=== PATIENT | male | born 1985 | race Caucasian/White ===

== ENCOUNTER 2018-08-04 08:58 | Emergency (ER) | payer OTHER ==
[~2018-08-04] VITALS: Ht 177.8 cm; Wt 79.4 kg
[2018-08-04 09:24] LABS: ABSOLUTE NEUTROPHILS 2.4 thou/uL (1.4-8.2); BASOPHILS 0.8 % (0.0-2.0); EOSINOPHILS 1.2 % (0.0-3.0); HEMATOCRIT 46.8 % (42.0-52.0); HEMOGLOBIN 16.1 gm/dL (14.0-18.0); LYMPHOCYTES 26.9 % (24.0-44.0); MCH 31.6 pg (26.0-34.0); MCHC 34.3 g/dL (28.0-37.0); MCV 92.1 fL (80.0-100.0); MONOCYTES 6.3 % (1.0-8.0); PLATELET COUNT 177 thou/uL (150-400); POLYS 64.8 % (36.0-66.0); RBC 5.08 mil/uL (4.50-6.00); RDW 12.7 % (10.5-14.5); WBC 3.7 thou/uL (4.0-11.0)
[2018-08-04 09:27] LABS: POTASSIUM 4.3 mmol/L (3.5-5.1)
[2018-08-04 09:33] LABS: ALBUMIN 4.6 g/dL (3.4-5.0); TOTAL BILIRUBIN 0.8 mg/dL (<0.1-1.0); TOTAL PROTEIN 7.6 g/dL (6.4-8.2); URINE BILIRUBIN NEGATIVE (Negative); URINE BLOOD NEGATIVE (Negative); URINE CLARITY CLEAR; URINE COLOR YELLOW; URINE GLUCOSE-RANDOM* NEGATIVE (Negative); URINE KETONES NEGATIVE (Negative); URINE LEUKOCYTES NEGATIVE (Negative); URINE NITRITE NEGATIVE (Negative); URINE PROTEIN (DIPSTICK) NEGATIVE (Negative); URINE SPECIFIC GRAVITY 1.015 (1.005-1.035); URINE UROBILINOGEN 0.2 E.U./dl (0.2-1.0)
[2018-08-04 10:49] VITALS: BP 116/54
--- NOTE | 2018-08-05 07:57 | EKG ---
[address] [employer] [address] ELECTROCARDIOGRAM REPORT Name: JESSEDESHAWN Room #: DEP JOSS Galindo#: [id number] ������������������ Admission: 08/04/18 ������������������ Attend Phys: Discharge: 08/04/18 ������������������ Date of : 87 Report #: [id number] ����������������������������������������������������������������� [id number] THIS REPORT FOR: //name// [facility] ED Test Date: 2018-08-04 Test Time: 09:04:58 Pat Name: DESHAWN MOLINA Department: Room: Gender: Cardio Clinician: ELLIE : 1985 Requested By: Johan Toro Order Number: [id number] MD: Kiran Cervantes Measurements Intervals [place] Rate: 95 P: 70 NE: 133 QRS: 40 QRSD: 96 T: 31 QT: 370 QTc: 465 Interpretive Statements Sinus rhythm Normal tracing No previous ECG available for comparison Electronically Signed On 08-05-2018 7:57:05 CDT by Kiran Cervantes [email or web address] ��������������������������������������������� <ELECTRONICALLY SIGNED> ���������������������������������������� By: Kiran Cervantes MD, [facility] ��������������������������������������������� 08/05/18 [id number] 0904 3 Kiran Cervantes MD, FACC /EPI
== END 2018-08-04 10:49 | disposition home or self-care (01) ==
LOC: ER 08:58
PROVIDERS: Emergency Medicine
DX: R55 Syncope and collapse (principal); R42 Dizziness and giddiness; F17.210 Nicotine dependence, cigarettes, uncomplicated